=== PATIENT | female | born 1995 | race Two or more races ===

== ENCOUNTER 2017-06-04 06:45 | Emergency (ER) | payer SELFPAY ==
[2017-06-04 07:03] VITALS: TEMP 98.2
[2017-06-04] MEDS ORDERED: Sodium Chloride 0.9% 1,000 ML IV STA ×3 (07:18→12:16)
--- NOTE | 2017-06-04 07:22 | ED PDOC ---
HPI: Psych/Substance Abuse Time Seen by Provider: 06/04/17 07:04 Chief Complaint (Nursing): Alcohol Ingestion Chief Complaint (Provider): Alcohol Ingestion History Per: EMS History/Exam Limitations: intoxication Modifying Factor(s): Alcohol Additional Complaint(s): Emeka Gaitan is a 21 year old female that was brought to the ED via EMS after being found sleeping in the grass. Patient denies any complaints and is unable to provide further history secondary to intoxication. Past Medical History Reviewed: Historical Data, Nursing Documentation, Vital Signs Vital Signs: Last Vital Signs Temp 98.2 F 06/04/17 06:57 Pulse 100 H 06/04/17 06:57 Resp 18 06/04/17 06:57 BP 118/75 06/04/17 06:57 Pulse Ox 100 06/04/17 06:57 - Family History Family History: States: Unknown Family Hx - Home Medications Home Medications: Ambulatory Orders Medication Instructions Recorded Unobtainable 06/04/17 - Allergies Allergies/Adverse Reactions: Allergies Allergy/AdvReac Type Severity Reaction Status Date / Time No Known Allergies Allergy Verified 06/04/17 06:56 Review of Systems Review Of Systems: ROS cannot be obtained secondary to pt's inabilty to answer questions. Physical Exam - Reviewed Nursing Documentation Reviewed: Yes Vital Signs Reviewed: Yes - Physical Exam Appears: Positive for: Non-toxic, No Acute Distress (Patient is lethargic, and is responsive to tactile stimuli. ) Head Exam: Positive for: ATRAUMATIC, NORMOCEPHALIC Skin: Positive for: Normal Color, Warm Eye Exam: Positive for: Normal appearance, EOMI, PERRL ENT: Positive for: Normal ENT Inspection. Negative for: Other (No drooling) Cardiovascular/Chest: Positive for: Regular Rate, Rhythm. Negative for: Murmur Respiratory: Positive for: Normal Breath Sounds. Negative for: Wheezing Extremity: Positive for: Normal ROM (Patient moving all extremities). Negative for: Deformity Neurologic/Psych: Positive for: Alert, Oriented. Negative for: Motor/Sensory Deficits - Laboratory Results Result Diagrams: 06/04/17 07:36 06/04/17 11:30 - ECG O2 Sat by Pulse Oximetry: 100 (RA) Pulse Ox Interpretation: Normal Medical Decision Making Medical Decision Making: Impression: Alcohol Intoxication Plan: * CT Head w/o contrast * CMP * CBC * Alcohol * Accucheck * Urine Drug Screen * Urine Preg * Urine Dip * Urinalysis * NaCl 1000 mLs at 1000 mLs/hr * Reevaluation CT Head w/o contrast FINDINGS: Patient unable to adequately position for examination. HEMORRHAGE: No intracranial hemorrhage. BRAIN: Normal ruiz-white matter differentiation and density are appreciated throughout the cerebrum and cerebellum with the brainstem appearing unremarkable as well. There is no mass effect. There is no suspicious extra-axial fluid collection in the midline brain anatomy appears diffusely unremarkable. 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 No hydrocephalus. CALVARIUM: Unremarkable. PARANASAL SINUSES: Unremarkable as visualized. No significant inflammatory changes. MASTOID AIR CELLS: Unremarkable as visualized. No inflammatory changes. OTHER FINDINGS: None. IMPRESSION: No acute intracranial findings as discussed above. No mass-effect intracranial hemorrhage or parenchymal edema. No suspicious extra-axial fluid collection. CT or MRI are available for follow-up if clinically warranted. 12:50 Patient is alert and oriented x3, steady gait. Gave patient the option to either stay in the ED and receive more IV fluids or go home and drink a lot of water and Gatorade. Patient reports that she is feeling better and wants to go home, is stable for discharge. Clinical Impression: Alcohol intoxication Scribe Attestation: Documented by Miranda Campbell, acting as a scribe for Francia Rodarte MD. Provider Scribe Attestation: All medical record entries made by the Scribe were at my direction and personally dictated by me. I have reviewed the chart and agree that the record accurately reflects my personal performance of the history, physical exam, medical decision making, and the department course for this patient. I have also personally directed, reviewed, and agree with the discharge instructions and disposition. Disposition - Clinical Impression Clinical Impression: Alcohol intoxication - Disposition Disposition: Routine/Home Disposition Time: 12:50 Condition: IMPROVED Forms: [employer] ([place])
[2017-06-04 07:53] LABS: BASO % 0.8 % (0.0-2.0); EOS % 0.3 % (0.0-4.0); LYMPH # 1.7 K/uL (1.0-4.3); LYMPH % 27.9 % (20.0-40.0); MEAN CELL VOLUME 92.4 fl (81.0-99.0); MEAN CORPUSCULAR HEMOGLOBIN 30.6 pg (27.0-31.0); MEAN CORPUSCULAR HGB CONC 33.1 g/dL (33.0-37.0); MEAN PLATELET VOLUME 7.9 fl (7.2-11.7); MONO # 0.6 K/uL (0.0-0.8); MONO % 9.4 % (0.0-10.0); NEUT # 3.7 K/uL (1.8-7.0); NEUT % 61.6 % (50.0-75.0); NRBC % 0.1 % (0.0-0.0)
[2017-06-04 08:11] LABS: ALB/GLOB RATIO 1.3 (1.0-2.1); ALCOHOL SERUM 195 mg/dl (0-10); ALKALINE PHOSPHATASE 36 U/L (38-126); ALT/SGPT 27 U/L (9-52); AST/SGOT 25 U/L (14-36); BILIRUBIN,TOTAL 1.1 mg/dl (0.2-1.3); BLOOD UREA NITROGEN 14 mg/dl (7-17); CALCIUM 8.5 mg/dL (8.4-10.2); CARBON DIOXIDE 22 mmol/L (22-30); CHLORIDE 113 mmol/L (98-107); GFR AFRICAN-AMERICAN > 60; GLUCOSE,RANDOM 92 mg/dL (65-105); POTASSIUM 3.8 MMOL/L (3.6-5.0); SODIUM 151 mmol/l (132-148); TOTAL PROTEIN 7.5 G/DL (6.3-8.2)
--- NOTE | 2017-06-04 09:12 | CT ---
PROCEDURE: CT HEAD WITHOUT CONTRAST. HISTORY: AMS COMPARISON: None available. TECHNIQUE: Axial computed tomography images were obtained through the head/brain without intravenous contrast. Radiation dose: Total exam DLP = 760.89 mGy-cm. This CT exam was performed using one or more of the following dose reduction techniques: Automated exposure control, adjustment of the mA and/or kV according to patient size, and/or use of iterative reconstruction technique. FINDINGS: Patient unable to adequately position for examination. HEMORRHAGE: No intracranial hemorrhage. BRAIN: Normal ruiz-white matter differentiation and density are appreciated throughout the cerebrum and cerebellum with the brainstem appearing unremarkable as well. There is no mass effect. There is no suspicious extra-axial fluid collection in the midline brain anatomy appears diffusely unremarkable. 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 No hydrocephalus. CALVARIUM: Unremarkable. PARANASAL SINUSES: Unremarkable as visualized. No significant inflammatory changes. MASTOID AIR CELLS: Unremarkable as visualized. No inflammatory changes. OTHER FINDINGS: None. IMPRESSION: No acute intracranial findings as discussed above. No mass-effect intracranial hemorrhage or parenchymal edema. No suspicious extra-axial fluid collection. CT or MRI are available for follow-up if clinically warranted.
[2017-06-04 12:00] LABS: ALB/GLOB RATIO 1.2 (1.0-2.1); ALKALINE PHOSPHATASE 34 U/L (38-126); ALT/SGPT 26 U/L (9-52); AST/SGOT 22 U/L (14-36); BILIRUBIN,TOTAL 0.6 mg/dl (0.2-1.3); BLOOD UREA NITROGEN 13 mg/dl (7-17); CALCIUM 7.7 mg/dL (8.4-10.2); CARBON DIOXIDE 19 mmol/L (22-30); CHLORIDE 117 mmol/L (98-107); GFR AFRICAN-AMERICAN > 60; GLUCOSE,RANDOM 83 mg/dL (65-105); SODIUM 148 mmol/l (132-148); TOTAL PROTEIN 6.8 G/DL (6.3-8.2)
[2017-06-04 12:50] LABS: RBC URINE 1 /hpf (0-3); URINE BACTERIA OCC (<OCC); URINE BILIRUBIN NEGATIVE (NEGATIVE); URINE BLOOD NEGATIVE (NEGATIVE); URINE COLOR STRAW (YELLOW); URINE GLUCOSE (UA) NEG (Normal); URINE KETONE TRACE mg/dL (NEGATIVE); URINE LEUKOCYTE ESTERASE NEG Leu/uL (Negative); URINE PROTEIN NEGATIVE (NEGATIVE); URINE UROBILINOGEN 0.2-1.0 mg/dL (0.2-1.0); WBC URINE < 1 /hpf (0-5)
[2017-06-04 13:07] VITALS: BP 90/60; PULSE 60; RESP 16; O2SAT 99
== END 2017-06-04 13:09 | disposition home or self-care (01) ==
LOC: H.ER 06:45
DX: F10.129 Alcohol abuse with intoxication, unspecified (principal); R55 Syncope and collapse
CPT/HCPCS: 70450; 80053; 81003; 81025; 82948; 85025; 96360; 99283; G0480; J7040